=== PATIENT | female | born 1975 | race Caucasian/White ===

== ENCOUNTER 2020-05-02 16:36 | Emergency (ER) | payer OTHER ==
[~2020-05-02] VITALS: Ht 185.4 cm; Wt 136.4 kg
[2020-05-02 16:38] VITALS: TEMP 97.8
[2020-05-02 17:27] VITALS: BP 111/68; PULSE 87
== END 2020-05-02 17:35 | disposition home or self-care (01) ==
LOC: COL.ER 16:36
DX: R53.81 Other malaise (principal)